=== PATIENT | male | born 1985 | race Caucasian/White ===

== ENCOUNTER 2017-12-13 20:40 | Emergency (ER) | payer OTHER ==
[~2017-12-13] VITALS: Ht 170.2 cm; Wt 74.7 kg
[~2017-12-13 20:40] MED LIST: GABAPENTIN; QUETIAPINE FUM100 MG PO; REMERON
[2017-12-13 21:54] LABS: HEMATOCRIT 39.3 % (38.0-50.0); HEMOGLOBIN 13.3 G/DL (12.5-16.6); MCH 29.6 PG (29.0-34.0); MCHC 33.8 G/DL (30.0-36.0); MCV 87.3 FL (86-99); PLATELET COUNT 188 K/uL (156-360); RBC DIS.WIDTH-CV 14.1 % (11.8-14.6); RBC DIS.WIDTH-SD 45.4 % (39-53); WHITE BLOOD COUNT 11.3 K/uL (4.1-10.2)
[2017-12-13 22:03] LABS: CHLORIDE 101 mEq/L (99-109); POTASSIUM 3.7 mEq/L (3.7-5.4); SODIUM 140 mEq/L (136-147)
[2017-12-13 22:04] LABS: GLUCOSE 99 mg/dL (70-99)
[2017-12-13 22:08] LABS: CREATININE 0.7 mg/dL (0.6-1.3); GFR ESTIMATE (CALCULATED) > 59 mL/min/ (58.99-99999)
[2017-12-13 22:09] LABS: UREA NITROGEN (BUN) 8 mg/dL (9-23)
[2017-12-13 22:11] LABS: CREATINE KINASE 121 IU/L (1-294); TOTAL CK 121 IU/L (1-294)
[2017-12-13 22:16] LABS: TROP-I INTERPRETATION NEGATIVE; TROPONIN-I < 0.01 ng/mL (0.0-0.30)
[2017-12-13 22:17] LABS: CK-MB 0.5 ng/mL (0.0-4.9); CKMB RELATIVE INDEX 0.4 (0.0-3.9)
[2017-12-13 22:48] VITALS: BP 118/86
== END 2017-12-13 22:49 | disposition home or self-care (01) ==
LOC: EME 20:40
PROVIDERS: Emergency Medicine
DX: K29.00 Acute gastritis without bleeding (principal); R42 Dizziness and giddiness; T78.1XXA Other adverse food reactions, not elsewhere classified, initial encounter; F17.200 Nicotine dependence, unspecified, uncomplicated
CPT/HCPCS: 71045; 80048; 82550; 82553; 84484; 85027; 93005; 99281; 99283